=== PATIENT | female | born 1980 | race Caucasian/White ===

== ENCOUNTER 2016-07-14 02:21 | Inpatient (IN) ==
[~2016-07-14 02:21] MED LIST: Famotidine 20 MG/2 ML VIAL IVP PRN; Metoclopramide 10 MG/2 ML VIAL IVP PRN; Naloxone 0.4 MG/ML INJ IVP PRN; Ondansetron 4 MG/2 ML VIAL IVP PRN
[2016-07-14] MEDS ORDERED: Penicillin G Potassium 5,000,000 UNIT in D5% in Water (Mini-Bag+) 100 ML IVPB ONE (02:30)
[2016-07-14] MEDS ORDERED: Ringers Solution, Lactated 1,000 ML IVC SCH (02:30)
[2016-07-14 02:51] LABS: Basophils % 0.2 %; Eosinophils # 0.1 K/mcL (0.0-0.6); Eosinophils % 0.9 %; Hematocrit 33.4 % (35.3-44.9); Hemoglobin 10.8 g/dL (11.5-15.4); Immature Platelets 11.3 % (1.1-6.1); Lymphocytes # 1.9 K/mcL (0.6-4.6); Lymphocytes % 23.1 %; Mean Corpuscular HGB Conc 32.3 g/dL (31.6-35.5); Mean Corpuscular Hemoglobin 27.7 pg (28.0-33.3); Mean Corpuscular Volume 85.6 fL (83.0-100.0); Mean Platelet Volume 11.4 fL (9.4-12.4); Monocytes # 0.7 K/mcL (0.0-1.3); Monocytes % 8.1 %; Neutrophils # 5.4 K/mcL (1.6-8.9); Platelet Count 175 K/mcL (140-400); Red Cell Distribution Width 14.6 % (11.5-14.5); Segmented Neutrophils % 66.7 %
[2016-07-14] MEDS ORDERED: miSOPROStol 100 MCG TABLET PO PRN (05:45)
--- NOTE | 2016-07-14 05:47 | OB/GYN History & Physical ---
Date of Encounter: 07/14/16 Time of Encounter: 05:38 Assessment and Plan (1) premature rupture of membranes Current visit: Yes Status: Acute will start PCN for GBS ppx, will allow a couple of hrs then give PO cytotec, ok for epidural, anticipate Qualifiers: Qualified Code(s): O42.919 - premature rupture of membranes, unspecified as to length of time between rupture and onset of labor, unspecified trimester History of Present Illness HPI: Ms. Marie is a 36 year old female @ 35+0 weeks who presents today with ROM @ approx 8PM 07/13. She described a gush of fluid, + nitrazine with soaked pads. No bleeding, no contractions, feels good FM. She has a h/o PTD @ 34 weeks and was on progesterone. Past Med Surg Social Fam HX - Past Medical History Medical history: no medical history Psychiatric history: no psych history - Past Surgical History Surgical History: no surgical history - Social History Smoking Status: Never smoker Smokeless Tobacco Status: No Alcohol use: none Drug use: none - Family History Mother Living Status: Still Living Hx Family Cardiac Disorders: Yes (HTN) Hx Family Respiratory Disorders: No Hx Family Cancer: Yes (breast cancer) Hx Family GI Disorders: No Hx Family Genitourinary Disorders: No Hx Family Endocrine Disorder: No Hx Family Musculoskeletal Disorders: No Hx Family Neuromuscular Disorders: No Hx Family Neurologic Disorders: No Hx Family HEENT Disorders: No Hx Family Autoimmune Disorders: No Hx Family Reproductive Disorders: No Hx Family Psychosocial Disorders: No Hx Family Medical Disorders: No Obstetrical History - Pregnancies : 3 Para: 2 Term: 1 : 1 Ab's: 0 Livin Medications and Allergies Vit/Iron Fumarate/FA [ Tablet] 1 each PO DAILY 07/14/16 [ History] Progesterone,Micronized [Endometrin] 200 mg VG DAILY 07/14/16 [History] Allergies No Known Allergies Allergy (Verified 07/14/16 02:07) Review of System OB All systems PM: reviewed and no additional remarkable complaints except as stated Exam - Constitutional Constitutional: no acute distress - HEENT HEENT: Normocephaly - Neck Neck exam: supple - Lungs Respiratory exam: CTAB - Cardiovascular Cardiovascular exam: RRR - Abdomen Abdomen: Present: gravid - Cervix Dilation: 1 Effacement: 70 Station: -2 Results Result Diagrams: 07/14/16 02:40 Abnormal lab results Hgb 10.8 g/dL (11.5-15.4) L 07/14/16 02:40 Hct 33.4 % (35.3-44.9) L 07/14/16 02:40 MCH 27.7 pg (28.0-33.3) L 07/14/16 02:40 RDW 14.6 % (11.5-14.5) H 07/14/16 02:40 Immature Plt Fraction 11.3 % (1.1-6.1) H 07/14/16 02:40 All other labs normal. - VTE Reasons for not Prescribing Prophylaxis: Treatment not Indicated - Low risk for VTE
[2016-07-14] MEDS: Penicillin G Potassium 2,500,000 UNIT in D5% in Water 100 ML IVPB SCH ×3 (07:21→15:53)
--- NOTE | 2016-07-14 08:10 | Anesthesia Evaluation PreOp ---
Date of Encounter: 07/14/16 Time of Encounter: 08:09 - Past History Planned Operation: cem Cardiac History: Denies any Significant Hx Pulmonary History: Denies Any Significant HX DISTRIBUTION COLLECTION OPERATOR History: Denies Any Significant HX Other Medical History: GERD Anesthesia History: No Prior Anesthetic Complications, Past Anesthesia (cem x2) , Problems (no complications) : Yes Alcohol Use: none Drug use: none Medications and Allergies Vit/Iron Fumarate/FA [ Tablet] 1 each PO DAILY 07/14/16 [ History] Progesterone,Micronized [Endometrin] 200 mg VG DAILY 07/14/16 [History] Allergies No Known Allergies Allergy (Verified 07/14/16 02:07) - Meds/Allergy Pre-op Review Medications Reviewed: Yes Allergies Reviewed: Yes Beta Blockers on Current Med List: No Anesthesia Results - Labs 07/14/16 02:40 Anesthesia Exam 130/80 108 16 fht 150 Height: 5'4" Weight: 108 kg NPO (# of Hours): 4 Pain Scale: 2 Pain Scale Used: Numeric (1 - 10) - HEENT Pupil (Motor): Pupils equal Mallampati: II Teeth: Normal Oral Opening: Greater than 3 - DISTRIBUTION COLLECTION OPERATOR LOC: Oriented DISTRIBUTION COLLECTION OPERATOR Motor: Normal RUE, Normal LUE, Normal RLE, Normal LLE, Normal Face DISTRIBUTION COLLECTION OPERATOR Sensory: Normal: RUE, LUE, RLE, LLE, Face - Cardiac Rhythm: Regular Murmur: None - Pulmonary Breath Sounds: bilateral Clear Respiratory Effort: Symmetrical Anesthesia Assess/Plan ASA Score: 2 Modified [place] Scale for Level of Consciousness: Cooperative, oriented, and tranquil Anesthetic Plan: Regional Autologous Blood: No Monitoring Plan: Standard Monitors Recovery Plan: Other (risks discussed, questions answered, consented)
[2016-07-14] MEDS ORDERED: *HR* FentaNYL (PF) 100 MCG/2 ML VIAL EP ONE (08:12)
[2016-07-14] MEDS ORDERED: *HR* Ropivacaine/PF 0.2% 10 ML AMPUL EP ONE (08:12)
[2016-07-14] MEDS ORDERED: Epidural Premix (fent/bupiv) 110 ML EP SCH (08:15)
--- NOTE | 2016-07-14 10:09 | OB Labor Progress Note ---
Date of Encounter: 07/14/16 Time of Encounter: 10:00 Labor Progress Note - Subjective Subjective: Patient states feeling occasional contractions but nothing uncomfortable at this time. Has not had any leaking of fluid for some time did have spontaneous rupture of membranes approximately 1999 last night. She is currently on antibiotics already and has received 1 dose of Cytotec. Did discuss with the patient if she is not colby appropriately we will need to augment either with another Cytotec or with Pitocin. - Cervix Cervix: 2/70/-3 - Heart Tones Heart Tones: heart tones 140s reactive - [facility]: IUPC placed contractions irregular every 2 minutes not adequate at this time. - Plan Plan: We will see patient's contractions improved if they do not we will augment with Pitocin
[2016-07-14] MEDS ORDERED: Oxytocin 20 units/ LR 1000 mL 20 UNIT/1,000 ML BAG IVC SCH (12:00)
[2016-07-14] MEDS ORDERED: *HR* FentaNYL (PF) 100 MCG/2 ML VIAL ONE (14:45)
[2016-07-14] MEDS ORDERED: *HR* Ropivacaine/PF 0.2% 10 ML AMPUL ONE (14:45)
[2016-07-14] MEDS ORDERED: Epidural Premix (fent/bupiv) 110 ML EP ONE (14:46)
--- NOTE | 2016-07-14 16:47 | Anesthesia Procedures ---
Date of Encounter: 07/14/16 Time of Encounter: 16:45 Procedures: Anesthesia - Epidural/Spinal Patient ID/Chart reviewed: Yes Patient examined: Yes OB Eval: Gestational age: 35 OB Eval: : 3 OB Eval: Hx Para: 2 OB Eval: Dilated at (cm): 4 OB Eval: Contractions: Non-stressed pattern Consent Obtained: Yes Supplemental Oxygen: None/Room Air Site Prep: Aseptic Technique, 0.5% Chlorhexidine/Alcohol Patient position: upright Local Anesthetic: Lidocaine 1% Amount of Local Anesthetic used: 3 Touhy Needle Gauge: 18 Touhy Needle Depth (cm): 8 Catheter Depth at Skin (cm): 18 Test Dose (1.5% Lido + Epi): Volume given (mls): 3 Test Dose Result: Negative Loading Dose: Fentanyl (mcg): 100 Loading Dose: Other: rop 0.2 10cc Loading Dose Administered: Thru Touhy Needle Infusion Med: 0.125% Bupivacaine w/ 2 mcg/ml Fentanyl Infusion Rate (mls/hr): 15 (pcea 5cc q 30") Catheter Secured in Place: Tegaderm Interspace Used: L3-L4 Loss of Resistance (ANDRES): Yes Blood: No CSF: No Paresthesia: No Procedure: aseptic, tolerated well, no complications, effective Vitals + FHT's: 120/68 96 fht 144
--- NOTE | 2016-07-14 20:11 | OB/GYN Procedure Note ---
Delivery - Delivery Date: 07/14/16 Provider: Sg Funk Intrapartum events: prolonged labor- > = 20hr, other(please specify) (Prolonged rupture membranes) Delivery induction: misoprostol Delivery augmentation: pitocin Delivery monitor: external FHT, external uterine, internal uterine Anesthesia: epidural Estimated Blood Loss: 200 - Infant (s) A Infant Delivery Date: 07/14/16 Infant Delivery Time: 19:54 Presentation: vertex Position: RUBY Route of delivery: Gender: Female Viability: Viable Pounds: 6 Ounces: 0 Weight Gram: 2.72 kg at 1 minute: 8 at 5 mins: 8 Shoulder Dystocia: not encountered Placenta: spontaneous Cord: 3 umbilical vessels - Repair Episiotomy: none Laceration Description: None - Complications Delivery complications: none Delivery comments: Patient is a 36-year-old female. 3 para 1101 at 35 and 0/7 weeks who presented to labor and delivery complaining of spontaneous rupture of membranes. Patient had rupture of membranes approximately 20:00 on the . Patient was grossly ruptured on admission but was fingertip to 1 cm. She was given by mouth Cytotec was cut a colby and we eventually placed her on Pitocin. Patient progressed appropriately patient became complete patient started feeling pressure and the head was . Patient did not have to push with just uterine contractions patient delivered a viable female in left occiput anterior presentation at 1954. There was no nuchal cord and meconium the infant was bulb suctioned on the abdomen Apgars of 8 at 1 minute 8 at 5 minutes infant weight was 6 lbs. 0 oz. Placenta was then delivered spontaneously with three-vessel cord, wash rack operator Dr. Funk, first sampler Michi Sham OMS3, anesthesia Epidural, estimated blood loss 200 mL. Perineum cervix and vagina was visualized intact. Patient tolerated delivery well patient will be observed before being taken floor. - Disposition Mom disposition: stable in LDR disposition: stable in LDR
[2016-07-14] MEDS ORDERED: Oxytocin 20 units/ LR 1000 mL 20 UNIT/1,000 ML BAG IV SCH (23:13)
[2016-07-14] MEDS ORDERED: Measles/Mumps/Rubella Vacc 0.5 ML VIAL SQ PRN (23:13)
[2016-07-14] MEDS ORDERED: Oxytocin 20 units/ LR 1000 mL 20 UNIT/1,000 ML BAG IVC ONE (23:13)
[2016-07-14] MEDS ORDERED: Acetaminophen 325 MG TABLET PO PRN (23:13)
[2016-07-15 05:40] LABS: Basophils % 0.3 %; Eosinophils # 0.1 K/mcL (0.0-0.6); Hematocrit 31.2 % (35.3-44.9); Hemoglobin 10.3 g/dL (11.5-15.4); Immature Granulocytes % 0.6 % (0-4); Lymphocytes # 1.7 K/mcL (0.6-4.6); Lymphocytes % 17.2 %; Mean Corpuscular Hemoglobin 27.8 pg (28.0-33.3); Mean Corpuscular Volume 84.3 fL (83.0-100.0); Mean Platelet Volume 11.5 fL (9.4-12.4); Monocytes # 0.9 K/mcL (0.0-1.3); Monocytes % 9.2 %; Neutrophils # 7.1 K/mcL (1.6-8.9); Platelet Count 163 K/mcL (140-400); Red Cell Distribution Width 14.6 % (11.5-14.5); Segmented Neutrophils % 71.7 %
[2016-07-15] MEDS ORDERED: NON-FORMULARY MEDICATION 1 EACH EACH (Prenatal Vit/Iron Fumarate/Fa [Prenatal Tablet] 1 EA PO SCH (09:00)
[2016-07-15] MEDS: Prenatal Vit/FA 1 EACH TABLET PO SCH (09:12)
[2016-07-15] MEDS: Ibuprofen 600 MG TABLET PO PRN ×2 (09:14→22:24)
--- NOTE | 2016-07-15 10:33 | OB/GYN Progress Note ---
Date of Encounter: 07/15/16 Time of Encounter: 10:28 - Assessment and Plan (1) Status post vaginal delivery Current Visit: Yes Status: Acute patient doing well, ambulation encouraged, cont current inpt care Subjective - Subjective Interval history: saw patient, doing well, , lochia is light, pain is under control, ambulating w/o issues, tolerating PO intake w/o issues. Patient reports: appetite normal, voiding normally, pain well controlled, ambulating normally [place]: doing well Objective - Latest Vital Signs Latest vital signs: Vital Signs Temp Pulse Pulse Resp BP Pulse Ox 07/15/16 09:18 16 07/15/16 07:55 98.0 F 102 16 111/77 98 07/15/16 00:30 98.6 F 102 16 108/72 97 07/14/16 23:45 102 15 07/14/16 23:35 98.1 F 104 16 124/77 98 07/14/16 22:30 98.1 F 99 16 107/66 97 07/14/16 21:59 15 07/14/16 21:45 98.5 F 90 16 116/78 98 Intake and Output 07/14/16 07/15/16 07/15/16 22:59 07:59 15:59 Intake Total 118 / 118 Output Total Balance 118 / 118 Intake: Oral 118 / 118 Output: Urine Other: Meal Breakfast Percent of Meal Consumed 80% Stool Characteristics Normal for Patient Weight - Exam Lungs: bilateral: normal Chest: Normal S1, Normal S2 Extremities: Present: normal Abdomen: Present: soft Uterus: Present: normal - Labs Labs: Laboratory Results - last 24 hr 07/15/16 05:26 WBC 9.9 RBC 3.70 L Hgb 10.3 L Hct 31.2 L MCV 84.3 MCH 27.8 L MCHC 33.0 RDW 14.6 H Plt Count 163 MPV 11.5 Immature Gran % 0.6 Seg Neutrophils % 71.7 Lymphocytes % 17.2 Monocytes % 9.2 Eosinophils % 1.0 Basophils % 0.3 Neutrophils # 7.1 Lymphocytes # 1.7 Monocytes # 0.9 Eosinophils # 0.1 Basophils # 0.0
--- NOTE | 2016-07-16 08:15 | Discharge Summary ---
Date of Encounter: 07/16/16 Time of Encounter: 08:13 - Discharge Diagnosis (1) Status post vaginal delivery Priority: Primary Status: Acute Comments: Pt states doing well. Pain well managed. Meeting all milestones. - Discharge Medications Home Medications: Vit/Iron Fumarate/FA [ Tablet] 1 each PO DAILY 07/14/16 [ History] Acetaminophen [Tylenol] 650 mg PO Q6HR PRN #0 tablet 07/16/16 [Rx] Breast Pump [BREAST PUMP] 1 each .ROUTE AD #1 each 07/16/16 [Rx] Docusate [Colace] 100 mg PO BID capsule 07/16/16 [Rx] Ibuprofen [Motrin] 600 mg PO Q6HR PRN #0 tablet 07/16/16 [Rx] Allergies/Adverse Reactions: Allergies No Known Allergies Allergy (Verified 07/14/16 02:07) Data Procedures and tests throughout hospitalization: Laboratory Tests 07/14/16 07/15/16 02:40 05:26 WBC 8.1 9.9 RBC 3.90 3.70 L Hgb 10.8 L 10.3 L Hct 33.4 L 31.2 L MCV 85.6 84.3 MCH 27.7 L 27.8 L MCHC 32.3 33.0 RDW 14.6 H 14.6 H Plt Count 175 163 MPV 11.4 11.5 Immature Gran % 1.0 0.6 Seg Neutrophils % 66.7 71.7 Lymphocytes % 23.1 17.2 Monocytes % 8.1 9.2 Eosinophils % 0.9 1.0 Basophils % 0.2 0.3 Neutrophils # 5.4 7.1 Lymphocytes # 1.9 1.7 Monocytes # 0.7 0.9 Eosinophils # 0.1 0.1 Basophils # 0.0 0.0 Immature Plt Fraction 11.3 H Date of admission: 07/14/16 02:21 Consults: 07/14/16 23:13 Consult to System Specialist [CONS] Routine Comment: Vaginal delivery, consult needed Discharging clinician: Yovana Kemp Anticipated date of discharge: 07/16/16 - Patient Status Disposition: Home, Self-Care Condition: Good Functional capacity at discharge: independent ambulation Overall status at discharge: patient is back to baseline - Discharge Instructions Instructions: Premature Rupture of Membranes (DC) Follow Up With: Aris Pittman MD [Partnered Physician] - Additional Instructions: Perineal Care: Always wipe front to back Change your pad frequently Use your jany bottle with warm water and spray front to back Do not douche, use tampons, have sexual intercourse or put anything in your vagina for 4-6 weeks after delivery Bleeding: Vaginal bleeding can last up to 6 weeks Your menstrual period may return as early as 6 weeks after you are discharged from the hospital [place]/Stitches Care: Vaginal Delivery Vaginal stitches will dissolve within 4-6 weeks Follow perineal care instructions Care Stitches will dissolve on their own If you have indu, they will need to be removed in the doctors office within 5-7 days. You may shower with stitches or indu Drip plan or soapy water over the incision to clean. Pat dry gently with a clean towel. Make sure you completely dry under the skin folds DO NOT USE powders, lotions, rubbing alcohol or hydrogen peroxide on or around your incision. This will slow your wound healing It is normal to have soreness, burning, tingling, itchiness and/or numbness as your incision heals Activity: Rest frequently Do not lift anything heavier than a gallon of milk, up to 10-15 pounds No driving for 1-2 weeks for Vaginal delivery No driving for 2-4 weeks for delivery Take stairs slowly, one at a time Gradually increase your daily activity until you are back to your normal routine Do not exercise until you have had your follow-up appointment Bathing: Take a shower daily Do not take a tub bath for the first 4 weeks Diet: Drink plenty of water and fruit juices Eat a well-balanced diet with foods high in fiber such as fruits and vegetables Depression: Your hormones have a major impact on your feelings and emotions. Hormone imbalance may cause changes in your mood, creating unfamiliar thoughts and actions. Support is available to help you understand and cope with these feelings and mood changes. If you answer yes to any of the following questions, please call your health care provider: Are you having trouble sleeping? Are you feeling isolated? Have you lost your appetite? Are you having thoughts of hurting yourself or others? WARNING SIGNS: Heavy bleeding from the vagina (blood is bright red and soaks a sanitary pad in an hour or less.) Passing a blood clot larger than your fist Discharge from the vagina that has a bad odor Temperature over 100.4 F, or if you feel cold and have chills An episiotomy site that is warm, swollen or oozing. Use a mirror if needed Urination (pee) that is painful, very red and swollen or leaking fluid An incision that is painful, very red and swollen and leaking fluid An incision that has come open Breasts that are painful or full with flu like symptoms Redness, warmth or swelling in the calf of your leg Trouble breathing, dizziness, visual disturbance or faintness *Notify your health care provider immediately or go to the nearest Emergency Room if you experience any of the above signs.* To contact the nurses station 24 hours a day, For non-urgent, routine questions, please call the office at - Diet and Activity Activity: resume usual activities as tolerated Diet: regular diet Hospital Course Reason for admission: IUP - , labor Delivery: Episiotomy: none Laceration: none Other procedures: none complications: none Discharge diagnosis: delivery [place] baby: female Hospital course: Delivery - Delivery Date: 07/14/16 Provider: Sg Funk Intrapartum events: prolonged labor- > = 20hr, other(please specify) (Prolonged rupture membranes) Delivery induction: misoprostol Delivery augmentation: pitocin Delivery monitor: external FHT, external uterine, internal uterine Anesthesia: epidural Estimated Blood Loss: 200 - Infant (s) Infant A Infant Delivery Date: 07/14/16 Infant Delivery Time: 19:54 Presentation: vertex Position: RUBY Route of delivery: Gender: Female Viability: Viable Pounds: 6 Ounces: 0 Weight Gram: 2.72 kg at 1 minute: 8 at 5 mins: 8 Shoulder Dystocia: not encountered Placenta: spontaneous Cord: 3 umbilical vessels - Repair Episiotomy: none Laceration Description: None - Complications Delivery complications: none Delivery comments: Patient is a 36-year-old female. 3 para 1101 at 35 and 0/7 weeks who presented to labor and delivery complaining of spontaneous rupture of membranes. Patient had rupture of membranes approximately 20:00 on the . Patient was grossly ruptured on admission but was fingertip to 1 cm. She was given by mouth Cytotec was cut a colby and we eventually placed her on Pitocin. Patient progressed appropriately patient became complete patient started feeling pressure and the head was . Patient did not have to push with just uterine contractions patient delivered a viable female infant in left occiput anterior presentation at 195. There was no nuchal cord and meconium the infant was bulb suctioned on the abdomen Apgars of 8 at 1 minute 8 at 5 minutes weight was 6 lbs. 0 oz. Placenta was then delivered spontaneously with three-vessel cord, multi skilled operator Dr. Funk, first grade teacher Michi Sham OMS3, anesthesia Epidural, estimated blood loss 200 mL. Perineum cervix and vagina was visualized intact. Patient tolerated delivery well patient will be observed before being taken floor. - Disposition Mom disposition: stable in and appropriate for discharge Time Attestation: Total time spent providing and/or coordinating discharge services: Time Spent: Less than 30 minutes Exam - Constitutional Vitals: Temp Pulse Resp BP Pulse Ox 98.2 F 101 12 109/74 99 07/15/16 21:25 07/15/16 21:25 07/15/16 21:25 07/15/16 21:25 07/15/16 21:25 General appearance IM: A&O X 3, no acute distress - Respiratory Respiratory exam: Present: CTAB - Cardiovascular Cardiovascular exam IM: Present: RRR, +S1, +S2 - GI/Abdominal GI/Abdominal exam IM: normal bowel sounds, soft - Uterine Tone: Firm - Extremities Exam Extremities exam IM: Present: normal inspection - Neurological Exam Neurological exam: normal gait, oriented X3 - Psychiatric Additional comments: reports good mood.
[2016-07-16 08:39] VITALS: BP 105/72
[2016-07-16] MEDS: Ibuprofen 600 MG TABLET PO PRN (09:17)
[2016-07-16] MEDS: Prenatal Vit/FA 1 EACH TABLET PO SCH (09:17)
== END 2016-07-16 12:45 | disposition home or self-care (01) | DRG 775 ==
LOC: 1NENULAB → 1NENUOBS 21:47
PROVIDERS: ADMIT Student in an Organized Health Care Education/Training Program; ATTEND Student in an Organized Health Care Education/Training Program